=== PATIENT | female | born 1960 | race Caucasian/White ===

== ENCOUNTER → 2016-10-16 | Outpatient (CLI) | payer BC | LOC: KOH-I 10:41 | DX: K57.32 Diverticulitis of large intestine without perforation or abscess without bleeding (principal); D25.9 Leiomyoma of uterus, unspecified | CPT/HCPCS: 74176 ==

== ENCOUNTER → 2021-07-30 | Outpatient (CLI) | payer OTHER ==
[~2021-07-30] MED LIST: AUGMENTIN 875-1 EACH PO; FLAGYL500 MG PO; ZOFRAN ODT 4 MG4 MG SL
== END ==
LOC: MAMO 10:00
DX: Z12.31 Encounter for screening mammogram for malignant neoplasm of breast (principal)
CPT/HCPCS: 77063; 77067

== ENCOUNTER → 2021-12-10 | Outpatient (CLI) | payer OTHER | LOC: KOH-I 12:44 | DX: E04.9 Nontoxic goiter, unspecified (principal) | CPT/HCPCS: 76536 ==

== ENCOUNTER → 2022-02-18 | Outpatient (CLI) | payer OTHER | LOC: US 09:30 | DX: D44.0 Neoplasm of uncertain behavior of thyroid gland (principal) ==